=== PATIENT | female | born 1940 | race Caucasian/White ===

== ENCOUNTER 2016-10-24 11:00 | Inpatient (IN) ==
[2016-10-24 13:17] LABS: Appearance,Urine CLEAR; Bacteria,Urine FEW /hpf (0); Bilirubin,Urine NEG (NEG); Color,Urine YELLOW; Glucose,Urine (UA) NEGATIVE (NEG); Leukocyte Esterase,Urine 75 /uL (NEG); Mucus,Urine FEW /hpf (0); Nitrate,Urine NEG (NEG); Protein,Urine NEG (NEG); Specific Gravity,Urine 1.016 (1.000-1.035); Urine Blood NEG mg/dL (<0.03); Urine RBC 2 /hpf (0-1); Urine Squamous Epithelial Cell 1 /hpf (0-4); Urine Transitional Epi Cells 1 /hpf (0-2); Urine WBC 15 /hpf (0-4); Urobilinogen,Urine NEG (NEG)
[2016-10-24 15:23] LABS: Basophils # (Auto) 0 K/mcL (0.0-0.3); Basophils % (Auto) 0.5 % (0.0-2.0); Eosinophils # (Auto) 0.1 K/mcL (0.0-0.7); Eosinophils % (Auto) 1.6 % (0.0-7.0); Granulocytes % (Auto) 56.9 % (38.0-78.0); Lymphocytes # (Auto) 2.8 K/mcL (1.5-4.8); Lymphocytes % (Auto) 34.8 % (15.5-49.0); Mean Cell Volume 87.2 fL (80.0-100.0); Mean Corpuscular HGB Conc 33.3 g/dL (31.0-36.0); Mean Corpuscular Hemoglobin 29.1 pg (26.0-34.0); Monocytes # (Auto) 0.5 K/mcL (0.1-0.9); Monocytes % (Auto) 6.2 % (1.0-9.0); Platelet Count 267 K/mcL (140-440); RBC 4.76 M/mcL (4.00-5.20); Red Cell Distribution Width 13.2 % (11.5-14.5)
[2016-10-24 16:00] LABS: Blood Urea Nitrogen 23 mg/dl (8-23)
[2016-10-31] MEDS ORDERED: ceFAZolin 1 GM VIAL IV SCH (06:00)
[2016-10-31] MEDS ORDERED: KETOROLAC 30 MG, ROPIVACAINE HCL/PF 49.5 ML, EPINEPHrine 0.5 MG, 0.9 % SODIUM CHLORIDE ... IJ ONE (06:00)
[2016-10-31] MEDS ORDERED: CELECOXIB 200 MG CAPSULE PO SCH (06:00)
[2016-10-31] MEDS ORDERED: PREGABALIN 150 MG CAPSULE PO SCH (06:00)
[2016-10-31] MEDS ORDERED: oxyCODONE 10 MG TAB.ER.12H PO SCH (06:00)
[2016-10-31 14:31] LABS: Appearance,Urine CLEAR; Bacteria,Urine 0 /hpf (0); Bilirubin,Urine NEG (NEG); Color,Urine YELLOW; Glucose,Urine (UA) NEGATIVE (NEG); Leukocyte Esterase,Urine NEG /uL (NEG); Mucus,Urine FEW /hpf (0); Nitrate,Urine NEG (NEG); Protein,Urine NEG (NEG); Specific Gravity,Urine 1.016 (1.000-1.035); Urine Blood NEG mg/dL (<0.03); Urine Hyaline Cast 1 /lpf (0-2); Urine RBC 1 /hpf (0-1); Urine Squamous Epithelial Cell 0 /hpf (0-4); Urine WBC 1 /hpf (0-4); Urobilinogen,Urine NEG (NEG)
[2016-10-31] MEDS ORDERED: GENTAMICIN SULFATE 800 MG/20 ML VIAL IR ONE (15:14)
[2016-10-31] MEDS ORDERED: DEXAMETHASONE 10 MG/ML VIAL ONE (15:29)
[2016-10-31] MEDS ORDERED: ePHEDrine 50 MG/ML AMPUL IV ONE (15:29)
[2016-10-31] MEDS ORDERED: GLYCOPYRROLATE 0.2 MG/ML VIAL IV ONE (15:29)
[2016-10-31] MEDS ORDERED: LIDOCAINE HCL/PF 100 MG/5 ML SYRINGE IV ONE (15:29)
[2016-10-31] MEDS ORDERED: PHENYLEPHRINE 10 MG/ML VIAL ONE (15:29)
[2016-10-31] MEDS ORDERED: ONDANSETRON 4 MG/2 ML VIAL ONE (15:29)
[2016-10-31] MEDS ORDERED: MIDAZOLAM 5 MG/5 ML VIAL ONE (15:29)
[2016-10-31] MEDS ORDERED: PROPOFOL 200 MG/20 ML VIAL IV ONE (15:29)
[2016-10-31] MEDS ORDERED: ONDANSETRON 4 MG/2 ML VIAL IV PRN ×2 (16:22→18:24)
[2016-10-31] MEDS ORDERED: ePHEDrine 50 MG/ML AMPUL IV PRN (16:22)
[2016-10-31] MEDS ORDERED: MEPERIDINE 25 MG/ML SYRINGE IV PRN (16:22)
[2016-10-31] MEDS ORDERED: METHOCARBAMOL 1,000 MG/10 ML VIAL IV PRN (16:22)
[2016-10-31] MEDS ORDERED: MEPERIDINE 50 MG/ML SYRINGE IM ONE (16:22)
[2016-10-31] MEDS ORDERED: PROMETHAZINE 25 MG/ML VIAL IV PRN (16:22)
[2016-10-31] MEDS ORDERED: METOCLOPRAMIDE 10 MG/2 ML VIAL IV PRN (16:22)
[2016-10-31] MEDS ORDERED: PROMETHAZINE 25 MG/ML VIAL IM ONE (16:22)
[2016-10-31] MEDS ORDERED: diphenhydrAMINE 50 MG/ML VIAL IV PRN (16:22)
[2016-10-31] MEDS ORDERED: FLUMAZENIL 0.1 MG/ML ML IV PRN (16:22)
[2016-10-31] MEDS ORDERED: fentaNYL 100 MCG/2 ML VIAL IV PRN (16:22)
[2016-10-31] MEDS ORDERED: NALOXONE HCL 0.4 MG/ML VIAL IV PRN (16:22)
[2016-10-31] MEDS ORDERED: LACTATED RINGERS 250 ML IV PRN (16:22)
[2016-10-31] MEDS ORDERED: HYDROmorphone 2 MG/ML SYRINGE IV PRN ×2 (16:22→18:24)
[2016-10-31] MEDS ORDERED: BENZOCAINE/MENTHOL 1 LOZENGE PO PRN ×2 (16:22→18:24)
[2016-10-31] MEDS ORDERED: IPRATROPIUM/ALBUTEROL 3 ML AMPUL.NEB NEB PRN (16:22)
[2016-10-31] MEDS ORDERED: LACTATED RINGERS 1,000 ML IV SCH (16:30)
--- NOTE | 2016-10-31 17:03 | Brief Operative Note ---
Date of procedure: 10/31/16 Pre-op diagnosis: left knee oa Post-op diagnosis: same Procedure: left total knee arthroplasty Grafts/Implants: Yes Anesthesia: spinal Complications: none Surgeon: Ramses Acosta Fisher Oyster: Mitchel Desai Estimated blood loss (cc): 100 Tourniquet Time (Minutes): 55 Specimens Removed/Pathology: none sent Condition: stable Disposition: PACU
[2016-10-31] MEDS ORDERED: DEXTROSE 50% 50 ML VIAL IV PRN (17:04)
[2016-10-31] MEDS ORDERED: TRANEXAMIC ACID 1,000 MG/10 ML VIAL IV SCH (17:04)
[2016-10-31] MEDS ORDERED: FUROSEMIDE 20 MG TABLET PO PRN (18:00)
[2016-10-31] MEDS ORDERED: POLYETHYLENE GLYCOL 3350 17 GM PACKET PO PRN (18:24)
[2016-10-31] MEDS ORDERED: BISACODYL 10 MG SUPP.RECT PR PRN (18:24)
[2016-10-31] MEDS ORDERED: MAGNESIUM HYDROXIDE 30 ML ORAL.SUSP PO PRN (18:24)
[2016-10-31] MEDS ORDERED: FLEETS ADULT ENEMA PR PRN (18:24)
[2016-10-31] MEDS: LACTATED RINGERS 1,000 ML IV SCH (18:52)
[2016-10-31] MEDS: KETOROLAC 15 MG/ML VIAL IV SCH ×2 (20:11→23:13)
[2016-10-31] MEDS: DOCUSATE SODIUM 100 MG CAPSULE PO SCH (20:11)
[2016-10-31] MEDS: ASPIRIN 325 MG ENTERIC COATED TABLET PO SCH (20:12)
[2016-10-31] MEDS: SENNOSIDES 1 TABLET PO SCH (20:12)
[2016-10-31] MEDS: LISINOPRIL 10 MG TABLET PO SCH (20:13)
[2016-10-31] MEDS: INSULIN LISPRO 1 UNIT/0.01 ML UNIT SQ SCH (21:06)
[2016-10-31] MEDS: HYDROcodone/APAP 10/325MG TABLET PO PRN ×2 (21:53→23:20)
[2016-10-31] MEDS: 0.9 % SODIUM CHLORIDE 10 ML SYRINGE IV SCH (21:55)
[2016-10-31] MEDS: ceFAZolin 1 GM VIAL IV SCH (23:13)
[2016-11-01] MEDS: LACTATED RINGERS 1,000 ML IV SCH (03:48)
[2016-11-01] MEDS: HYDROcodone/APAP 10/325MG TABLET PO PRN ×4 (04:07→17:33)
[2016-11-01] MEDS: KETOROLAC 15 MG/ML VIAL IV SCH ×3 (06:18→17:33)
[2016-11-01] MEDS: 0.9 % SODIUM CHLORIDE 10 ML SYRINGE IV SCH ×3 (06:19→21:30)
--- NOTE | 2016-11-01 06:21 | XRay Report ---
CLINICAL INFORMATION: Postop total knee prostheses COMPARISON: None. FINDINGS: Total knee prostheses is anatomically aligned. No osseous abnormalities. Periarticular soft tissue swelling and gas seen as expected. IMPRESSION: Negative Interpreted and Authenticated by: Ramses Lisa 11/01/16
[2016-11-01] MEDS: LEVOTHYROXINE 100 MCG TABLET PO SCH (06:41)
[2016-11-01] MEDS: ceFAZolin 1 GM VIAL IV SCH (06:41)
[2016-11-01] MEDS: PANTOPRAZOLE 40 MG TABLET PO SCH ×2 (06:41→17:34)
--- NOTE | 2016-11-01 07:02 | Orthopedic Progress Note ---
Subjective Patient information: Note initiated : 11/01/16 at 7:00 am Service Date, if different from initiated Date: [] Patient: Sade Lowery 76 y/o F admitted on 10/31/16 for Left total Knee Arthroplasty. Chief Complaint: [] Principal diagnosis: left total knee arthroplasty Interval history: Patient is doing well this morning without complaint. She has been walking and has minimal pain with WB. She denies any calf pain, chest pain, SOB. Anticipate d/c home tomorrow. Objective Vital signs: Vital Signs Temp Pulse Resp BP BP Pulse Ox 11/01/16 04:00 97.6 F 76 16 116/53 95 10/31/16 23:47 97.3 F L 84 16 109/66 94 10/31/16 22:48 94 10/31/16 22:47 94 10/31/16 21:28 95 H 131/76 97 10/31/16 20:43 86 109/65 97 10/31/16 20:13 94 H 105/67 92 10/31/16 19:43 85 114/72 88 L 10/31/16 19:13 100 H 107/53 94 10/31/16 18:58 91 H 133/72 95 10/31/16 18:43 96.1 F L 92 H 18 126/69 96 10/31/16 18:20 98.9 F 93 H 18 133/60 94 10/31/16 18:05 102 H 18 155/61 97 10/31/16 17:50 102 H 17 153/61 96 10/31/16 17:35 98.5 F 94 H 18 140/54 100 10/31/16 17:32 95 H 18 135/55 100 10/31/16 17:27 99 H 18 132/59 99 10/31/16 17:22 99 H 19 132/59 99 10/31/16 17:17 98.5 F 107 H 12 123/58 99 10/31/16 13:50 96.4 F L 78 16 141/80 97 Intake and Output 10/31/16 11/01/16 11/01/16 21:59 05:59 13:59 Intake Total 1700 / 1700 325 / 325 Output Total 250 / 250 300 / 300 Balance 1450 / 1450 25 / 25 Intake: IV 1700 / 1700 Lactated Ringers 250 ml @ 1700 / 1700 Wide Open IV PRN PRN Rx# :[id number] Oral 325 / 325 Output: Void Amount 100 / 100 300 / 300 Estimated Blood Loss 150 / 150 Other: # Voids 1 Weight 210 lb Intake & Output: Intake & Output 10/31/16 11/01/16 11/01/16 21:59 05:59 13:59 Intake Total 1700 / 1700 325 / 325 Output Total 250 / 250 300 / 300 Balance 1450 / 1450 25 / 25 Weight 210 lb Intake: IV 1700 / 1700 Lactated Ringers 250 ml @ 1700 / 1700 Wide Open IV PRN PRN Rx# :[id number] Oral 325 / 325 Output: Void Amount 100 / 100 300 / 300 Estimated Blood Loss 150 / 150 Other: # Voids 1 Incision: Yes clean and dry Dressing: Yes clean, Yes dry, Yes intact Weight bearing status: full Neurological exam IM: Yes alert, Yes oriented X3, Yes motor sensory intact Extremities exam IM: Yes normal capillary refill, Yes neurovascular intact - Periperhal Pulses Peripheral pulses: 2+: dorsalis pedis (L), dorsalis pedis (R), posterior tibialis (L), posterior tibialis (R) - Labs CBC & BMP: 11/01/16 03:40 10/24/16 11:45 Labs: Orthopedic Labs 10/24/16 11:45 PT 12.7 INR 0.9 11/01/16 10/24/16 03:40 11:45 Hgb 12.5 13.8 Hct 38.3 41.5 Assessment and Plan (1) S/P total knee arthroplasty PO day 1 s/p left total knee arthroplasty -wbat -pain control -PT -dvt proph -anticipate d/c home tomorrow Status: Acute Qualifiers: Laterality: left Qualified Code(s): Z96.652 - Presence of left artificial knee joint
[2016-11-01] MEDS ORDERED: POTASSIUM CHLORIDE 10 MEQ TABLET PO PRN (08:00)
[2016-11-01] MEDS: INSULIN LISPRO 1 UNIT/0.01 ML UNIT SQ SCH ×4 (08:03→21:27)
[2016-11-01] MEDS: ASPIRIN 325 MG ENTERIC COATED TABLET PO SCH ×2 (08:47→21:28)
[2016-11-01] MEDS: LISINOPRIL 10 MG TABLET PO SCH ×2 (08:47→21:28)
[2016-11-01] MEDS: DOCUSATE SODIUM 100 MG CAPSULE PO SCH ×2 (08:47→21:28)
[2016-11-01] MEDS: FERROUS SULFATE 325 MG TABLET PO SCH (08:47)
[2016-11-01] MEDS: MULTIVIT,THER IRON,CA,FA & MIN 1 TABLET PO SCH (08:48)
[2016-11-01] MEDS: glipiZIDE 2.5 MG TAB.XL.24H PO SCH (08:48)
--- NOTE | 2016-11-01 09:23 | Operative Note ---
DATE OF OPERATION: 10/31/2016 PREOPERATIVE DIAGNOSIS: Degenerative joint disease, left knee. POSTOPERATIVE DIAGNOSIS: Degenerative joint disease, left knee. PROCEDURE: Left total knee arthroplasty. SURGEON: Madalyn Acosta M.D. [employer]IATE SURGEON: Mitchel Desai PA-C ANESTHESIA: Spinal with LMA assist. ESTIMATED BLOOD LOSS: 100 mL COMPLICATIONS: None noted. SPECIMENS REMOVED: None. DRAINS: None. TOURNIQUET TIME: 55 minutes at 300 mmHg. IMPLANTS: Depuy CMW2, gentamycin bone cement 20 grams x4, Depuy Attune femoral posterior stabilized size 6 left narrow, Depuy Attune tibial insert fixed bearing posterior stabilized size 5, 5 mm AOX, Depuy Attune tibial based fixed bearing size 3 cemented, Depuy Attune patella medialized dome 35 mm cemented AOX. INDICATIONS: The patient has had a long-standing history of worsening pain in the knee that has failed conservative treatment. Radiographs have confirmed advanced degenerative joint disease. After a long discussion about treatment options, the patient elected to proceed with a knee arthroplasty. The risks and benefits were discussed with the patient in detail including, but not limited to, the risks of anesthesia, problems with the heart or lungs related to anesthesia, infection, compromise or injury to the nerves and blood vessels, deep venous thrombosis, pulmonary embolism, pneumonia, continued pain after surgery, worsening pain or symptoms after surgery, swelling, loss of motion, instability, leg length discrepancy, and need for repeat surgery. DESCRIPTION OF PROCEDURE: The patient was seen in the pre-anesthesia waiting room where all questions were answered and the correct side and site were identified and marked. The patient was transferred to the operating room and administered the anesthetic and given pre-operative antibiotics. A time-out was then called. The extremity was prepped and draped, exsanguinated, and the tourniquet was inflated to 300 mmHg. A midline skin incision was then made with a standard medial parapatellar arthrotomy. Debridement of the menisci, ACL, and PCL was performed followed by balancing releases in the medial lateral plane. We then established intramedullary access to both the femur and tibia in a standard fashion. The femoral guide abrahan was initially placed with the distal femoral guide, pinned into place, and the distal femoral cut was performed and checked with a flat plate. We then turned our attention to the tibia. The intramedullary guide was placed with the proximal tibial cutting block. The block was appropriately positioned off the affected side, varus and valgus was checked with the extra-medullary guide, and the block was pinned into place. The proximal tibial cut was performed and the tibia was prepared for the tibial implant with appropriate rotation. The tibia, femur, and posterior compartment were debrided of osteophytes, loose bodies, and meniscal fragments We then used the gap balancing technique to balance extension with the first two cuts and good balancing was obtained with a 10 millimeter gap block. We turned our attention back to the femur and used the referencing block and implant to size appropriately. Using the gap balancing technique for the flexion space we set our rotation of the femur off the tibial cut. Anesthesia gave the patient 1 gram of Tranexamic Acid via an intravenous route. We placed the 4 in 1 cutting block and made anterior, posterior, and chamfer cuts. Box plasty cuts were then made in a standard fashion for the posterior stabilized prosthesis. We then completed osteophyte release and posterior capsule release from the posterior compartment. Trials were placed and we chose the polyethylene insert thickness that provided the best stability in all planes. With the trials in place, we did a measured resection for a resurfacing patella. We sized the patella and placed the patella trial and performed a lateral facetectomy with the saw and rongeur. Good tracking was obtained. We removed all trials, irrigated and dried all cut surfaces. We cemented the components into place including tibia, femur and patella. We placed a trial liner and held the knee in full extension with the patella compressed while the cement cured. We then removed all excess cement and placed the final polyethylene tibiofemoral component. Irrigation with 3 liters of antibiotic saline was then performed using jet-lavage. We let the tourniquet down and coagulated bleeding vessels. We injected a 100 cubic centimeter volume including Ropivacaine 49.25 cubic centimeters at 5 milligrams per cubic centimeter, Ketorolac 30 milligrams, and Epinephrine 0.5 milligrams into 100 cubic centimeters volume of normal saline. We placed a deep drain and closed the retinaculum with looped #0 Maxon. We closed the subcutaneous tissue and skin in layers out to vanna in the skin. A sterile pressure dressing was applied. All needle and sponge counts were correct. The patient was transferred to the recovery room in stable condition. BARBARA:diane Job ID: [id number] Doc ID: [id number] Madalyn Acosta MD
[2016-11-01] MEDS: SENNOSIDES 1 TABLET PO SCH (21:28)
[2016-11-02] MEDS: KETOROLAC 15 MG/ML VIAL IV SCH ×3 (00:22→12:14)
[2016-11-02] MEDS: HYDROcodone/APAP 10/325MG TABLET PO PRN ×2 (04:09→08:59)
[2016-11-02] MEDS: METHOCARBAMOL 750 MG TABLET PO PRN ×2 (04:59→12:15)
[2016-11-02] MEDS: 0.9 % SODIUM CHLORIDE 10 ML SYRINGE IV SCH ×2 (05:35→12:32)
--- NOTE | 2016-11-02 07:04 | Orthopedic Progress Note ---
Subjective Patient information: Note initiated : 11/02/16 at 7:02 am Service Date, if different from initiated Date: [] Patient: Sade Lowery 76 y/o F admitted on 10/31/16 for Left total Knee Arthroplasty. Chief Complaint: [] Principal diagnosis: left total knee arthroplasty Interval history: doing ok. sore but getting up and making progress Objective Vital signs: Vital Signs Temp Pulse Resp BP Pulse Ox 11/02/16 04:00 97.5 F L 76 12 122/72 97 11/02/16 00:00 97.5 F L 71 12 115/66 94 11/01/16 20:00 97.9 F 76 12 104/65 94 11/01/16 17:07 98.4 F 87 16 113/63 93 11/01/16 12:24 98.4 F 75 16 120/74 95 11/01/16 07:41 96 11/01/16 07:40 98.1 F 77 16 120/69 95 Intake and Output 11/01/16 11/02/16 11/02/16 21:59 05:59 13:59 Intake Total 600 / 600 100 / 100 Output Total 250 / 250 75 / 75 Balance 350 / 350 25 / 25 Intake: Oral 600 / 600 100 / 100 Output: Void Amount 250 / 250 75 / 75 Other: Weight 210 lb Intake & Output: Intake & Output 11/01/16 11/02/16 11/02/16 21:59 05:59 13:59 Intake Total 600 / 600 100 / 100 Output Total 250 / 250 75 / 75 Balance 350 / 350 25 / 25 Weight 210 lb Intake: Oral 600 / 600 100 / 100 Output: Void Amount 250 / 250 75 / 75 Incision: Yes healing, Yes swollen, Yes clean and dry Incision clean and dry: Yes Dressing: Yes clean, Yes dry, Yes intact Weight bearing status: full Neurological exam IM: Yes abnormal gait, Yes alert, Yes oriented X3, Yes motor sensory intact, Yes neurovascular intact Extremities exam IM: Yes Foot pink and warm, Yes neurovascular intact - Labs CBC & BMP: 11/02/16 03:30 10/24/16 11:45 Labs: Orthopedic Labs 10/24/16 11:45 PT 12.7 INR 0.9 11/02/16 11/01/16 10/24/16 03:30 03:40 11:45 Hgb 10.1 L 12.5 13.8 Hct 30.7 L 38.3 41.5 Assessment and Plan (1) S/P total knee arthroplasty pod 2 s/p tka wbat pain control dvt prophylaxis d/c planning Status: Acute Qualifiers: Laterality: left Qualified Code(s): Z96.652 - Presence of left artificial knee joint
--- NOTE | 2016-11-02 07:05 | Discharge Summary ---
Ortho Discharge - TKA - Patient Instructions Diet: Regular Diet Activity: ambulate with assistive device, weight bearing as tolerated Total Knee Protocol: For Total Knee: Start ROM CAROLINE with stationary bike or rocking chair. Work on gaining full extension of knee. Posterior dislocation precautions provided. Hip abductor strengthening and gait training instructions provided. Apply Cryocuff as instructed. Dressing Care: May shower in 2 days, Aquacel Ag - leave on for 5 days Patient Education: Total Knee Replacement (DC) - Problem Maintenance (1) S/P total knee arthroplasty Status: Acute Qualifiers: Laterality: left Qualified Code(s): Z96.652 - Presence of left artificial knee joint - Follow Up Plan Follow Up Appointments: Ramses Acosta MD [Physician] - 11/15/16 10:10 am Disposition: Home, Self-Care Prognosis: Good Rehab Potential: Good I certify that the patient requires SNF services: No Overall status at discharge: patient is progressing back to baseline
[2016-11-02] MEDS: INSULIN LISPRO 1 UNIT/0.01 ML UNIT SQ SCH ×2 (07:30→12:29)
[2016-11-02] MEDS: PANTOPRAZOLE 40 MG TABLET PO SCH (07:34)
[2016-11-02] MEDS: LEVOTHYROXINE 100 MCG TABLET PO SCH (07:34)
[2016-11-02] MEDS: FERROUS SULFATE 325 MG TABLET PO SCH (08:59)
[2016-11-02] MEDS: DOCUSATE SODIUM 100 MG CAPSULE PO SCH (08:59)
[2016-11-02] MEDS: LISINOPRIL 10 MG TABLET PO SCH (08:59)
[2016-11-02] MEDS: ASPIRIN 325 MG ENTERIC COATED TABLET PO SCH (08:59)
[2016-11-02] MEDS: MULTIVIT,THER IRON,CA,FA & MIN 1 TABLET PO SCH (08:59)
[2016-11-02] MEDS: glipiZIDE 2.5 MG TAB.XL.24H PO SCH (09:01)
== END 2016-11-02 15:15 | disposition home or self-care (01) | DRG 470 ==
LOC: MEDSUR 10-31 13:00
PROVIDERS: ADMIT Orthopaedic Surgery Sports Medicine; ATTEND Orthopaedic Surgery Sports Medicine